=== PATIENT | female | born 1960 | race Caucasian/White ===

== ENCOUNTER 2016-08-10 06:45 | Day surgery (SDC) | payer BC ==
[2016-08-10] MEDS ORDERED: Lactated Ringers 1,000 ML IV SCH (07:00)
[2016-08-10] MEDS ORDERED: Sodium Chloride 0.9% 10 ML Syringe FLUSH PRN (07:00)
[2016-08-10] MEDS ORDERED: diphenhydrAMINE 50 MG/ML SDV IV ONE (08:15)
[2016-08-10] MEDS ORDERED: Ondansetron 4 MG/2 ML SDV IVPUSH ONE (08:15)
[2016-08-10] MEDS ORDERED: Dexamethasone 4 MG/ML 5 ML MDV IVPUSH ONE (08:15)
[2016-08-10] MEDS ORDERED: Propofol 200 MG/20 ML SDV IV ONE (08:15)
[2016-08-10] MEDS ORDERED: Succinylcholine 200 MG/10 ML MDV IV ONE (08:15)
[2016-08-10] MEDS ORDERED: Neostigmine Methylsulfate 1 MG/ML 5 ML Syringe IV ONE (08:15)
[2016-08-10] MEDS ORDERED: Lactated Ringers 1,000 ML IV ONE (08:15)
[2016-08-10] MEDS ORDERED: fentaNYL 100 MCG/2 ML SDV IV ONE (08:15)
[2016-08-10] MEDS ORDERED: Rocuronium 50 MG/5 ML Vial IV ONE (08:15)
[2016-08-10] MEDS ORDERED: Albuterol 8 GM Inhaler INH ONE (08:15)
[2016-08-10] MEDS ORDERED: Ketorolac 30 MG/ML SDV IVPUSH ONE (08:15)
[2016-08-10] MEDS ORDERED: Midazolam 1 MG/ML 2 ML SDV IV ONE (08:15)
--- NOTE | 2016-08-10 08:24 | PCM.HPR ---
H & P Addendum review - H & P Addendum Review Date of Original H & P: 07/31/16 Date Reviewed: 08/10/16 Time Reviewed: 08:10 Patient was examined: No Changes (ok to proceed with lap ken)
--- NOTE | 2016-08-10 09:10 | PCM.OPNOTE ---
- General Post-Op/Procedure Note Date of Surgery/Procedure: 08/10/16 Operative Procedure(s): Lap Radha Pre Op Diagnosis: Chronic Cholecystitis Post-Op Diagnosis: Same Anesthesia Technique: General ET tube Primary Surgeon: Paul Gastelum Anesthesia Provider: Carole Ma Pathology: Gallbladder EBL in mLs: 5 Complications: None Condition: Good
[2016-08-10] MEDS ORDERED: Acetaminophen/HYDROcodone 325-5 MG Tab PO PRN (09:16)
[2016-08-10] MEDS ORDERED: Morphine 2 MG/ML Syringe IVPUSH PRN (09:16)
--- NOTE | 2016-08-10 15:31 | OR ---
DATE OF OPERATION: 08/10/2016 SURGEON: Paul Gastelum MD PREOPERATIVE DIAGNOSIS: Chronic cholecystitis. POSTOPERATIVE DIAGNOSIS: Chronic cholecystitis. PROCEDURE: Laparoscopic cholecystectomy. ANESTHESIA: General. DESCRIPTION OF PROCEDURE: The patient was brought to the operating room, where general endotracheal anesthesia was administered. The abdomen was prepped with ChloraPrep and draped sterilely. An infraumbilical incision was made and extended into the peritoneal cavity without difficulty. The Trinity cannulator was introduced and a pneumoperitoneum obtained. The remaining three 5-mm ports were placed in the usual positions. General exploration revealed the surface of the liver, stomach, omentum, bowel, and peritoneal surfaces to be normal. The gallbladder was grasped and retracted cephalad. The cystic artery and cystic duct were clearly dissected free. Minimal oozing occurred during the dissection. The cystic artery was doubly clipped proximally and once distally and then transected. There was a small posterior branch of the cystic artery that was doubly clipped proximally and cauterized distally. The anatomy of the cystic duct was reconfirmed and could be seen entering the gallbladder and extending towards the common bile duct. This was doubly clipped proximally and once distally and then transected. The gallbladder was then removed from the bed of the liver without difficulty. No bile leakage occurred. The gallbladder was brought out through the umbilical incision. The right upper quadrant was irrigated and inspected, return was clear, and hemostasis was assured. Ports were removed under direct vision and remained hemostatic. The umbilical fascia was closed with [id number] #0 Vicryl. The skin was closed with #4-0 Vicryl subcuticular sutures. Benzoin and Steri-Strips were placed and Band-Aids applied. The patient tolerated the procedure well. Estimated blood loss is 5 cc. Patient returned to postanesthesia in stable condition ESTIMATED BLOOD LOSS: 5 mL. /[id number] HALEY/JAYA
[2016-08-10 17:21] VITALS: BP 118/77
== END 2016-08-10 16:55 | disposition home or self-care (01) ==
LOC: FB.SDS 06:45 → FB.MS 15:30 → FB.SDS 16:55
PROVIDERS: ATTEND Surgery
DX: K81.1 Chronic cholecystitis (principal); E21.3 Hyperparathyroidism, unspecified; F32.9 Major depressive disorder, single episode, unspecified; Z98.51 Tubal ligation status; Z90.710 Acquired absence of both cervix and uterus; Z98.890 Other specified postprocedural states; Z79.899 Other long term (current) drug therapy; I10 Essential (primary) hypertension; E03.9 Hypothyroidism, unspecified; E78.5 Hyperlipidemia, unspecified; J45.30 Mild persistent asthma, uncomplicated
CPT/HCPCS: 47562; A9270; J0330; J1100; J1200; J1885; J2250; J2270; J2405; J2704; J3010; J7120; 88304

== ENCOUNTER 2017-09-26 13:10 | Emergency (ER) | payer OTHER, BC ==
[2017-09-26] MEDS ORDERED: Ibuprofen 600 MG Tab PO ONE (13:18)
--- NOTE | 2017-09-26 14:12 | EDM.PDOC ---
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 There was no direct traum and the pt is able to extend and flex the left elbow with some discomfort in full. No other acute medical issues. 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 - Related Data Allergies Allergy/AdvReac Type Severity Reaction Status Date / Time No Known Allergies Allergy Verified 08/10/16 07:06 Home Meds: Home Meds Albuterol [Ventolin HFA] 2 inh IH Q6H PRN 02/01/14 [History] Mirtazapine [Remeron] 15 mg PO BEDTIME 02/01/14 [History] QUEtiapine Fumarate [Quetiapine Fumarate] 100 mg PO BEDTIME 02/01/14 [History] Venlafaxine HCl [Venlafaxine ER] 75 mg PO DAILY 02/01/14 [History] Beclomethasone Dipropionate [Qvar 80 Mcg] 1 puff IH BID 08/07/16 [History] Levothyroxine Sodium [Synthroid] 75 mcg PO ACBREAKFAST 08/07/16 [History] Omeprazole 20 mg PO DAILY 08/07/16 [History] Venlafaxine [Effexor XR] 150 mg PO DAILY 08/07/16 [History] Losartan [Cozaar] 100 mg PO DAILY 08/10/16 [History] Past Medical History HEENT History: Reports: Cataract Cardiovascular History: Reports: Heart Failure, High Cholesterol, Hypertension Respiratory History: Reports: Asthma Gastrointestinal History: Reports: GERD, Irritable Bowel Syndrome Genitourinary History: Reports: Renal Calculus Musculoskeletal History: Reports: Back Pain, Chronic Neurological History: Reports: Other (See Below) Other Neuro History: INSOMNIA Psychiatric History: Reports: Anxiety, Depression, PTSD Endocrine/Metabolic History: Reports: Hyperparathyroidism, Obesity/BMI 30+ - Infectious Disease History Infectious Disease History: Reports: Chicken Pox, Measles - Past Surgical History GI Surgical History: Reports: Cholecystectomy Female Surgical History: Reports: Breast Biopsy, Hysterectomy, Tubal Ligation Endocrine Surgical History: Reports: Parathyroidectomy Musculoskeletal Surgical History: Reports: Knee Replacement Social & Family History - Family History Family Medical History: Noncontributory - Caffeine Use Caffeine Use: Reports: Coffee Review of Systems - Review of Systems Review Of Systems: See Below Constitutional: Reports: No Symptoms Eyes: Reports: No Symptoms Ears: Reports: No Symptoms Nose: Reports: No Symptoms Mouth/Throat: Reports: No Symptoms Respiratory: Reports: No Symptoms Cardiovascular: Reports: No Symptoms GI/Abdominal: Reports: No Symptoms Genitourinary: Reports: No Symptoms Musculoskeletal: Reports: Arm Pain (left elbow) Skin: Reports: No Symptoms Neurological: Reports: No Symptoms Psychiatric: Reports: No Symptoms ED EXAM, GENERAL - Physical Exam Exam: See Below Exam Limited By: No Limitations General Appearance: Alert, WD/WN, Mild Distress Eye Exam: Bilateral Eye: Normal Inspection Ears: Normal External Exam, Normal Canal Ear Exam: Bilateral Ear: Auricle Normal Nose: Normal Inspection, Normal Mucosa, No Blood Throat/Mouth: Normal Inspection, Normal Lips, Normal Gums, Normal Oropharynx, Normal Voice, No Airway Compromise Head: Atraumatic, Normocephalic Neck: Normal Inspection, Supple, Non-Tender, Full Range of Motion Respiratory/Chest: No Respiratory Distress, Lungs Clear, Normal Breath Sounds, No Accessory Muscle Use, Chest Non-Tender Cardiovascular: Normal Peripheral Pulses, Regular Rate, Rhythm, No Edema, No Gallop, No JVD Peripheral Pulses: 1+: Brachial (R) GI/Abdominal: Normal Bowel Sounds, Soft, Non-Tender, No Organomegaly, No Distention, No Abnormal Bruit, No Mass, Pelvis Stable (Female) Exam: Deferred Rectal (Female) Exam: Deferred Back Exam: Normal Inspection, Full Range of Motion Extremities: Normal Inspection, Normal Range of Motion, Non-Tender, No Pedal Edema Neurological: Alert, Oriented, CN II-XII Intact, Normal Cognition, Normal Gait Psychiatric: Normal Affect, Normal Mood Skin Exam: Warm, Dry, Intact, Normal Color, No Rash Lymphatic: No Adenopathy Course - Vital Signs Text/Narrative:: 57 y.o.w.f came to the ed after she noticed left elbow pain as she put fresh meat in an upper shelf which. There was no direct traum and the pt is able to extend and flex the left elbow with some discomfort in full. No other acute medical issues. BP 157/94 pulse 104 RR 18 Temp 36.6 O2 sat 98% on RA PE: 57 y.o.w.mika came to the ed aft she felt some pain at her left elbow while filling up a shelf with fresh meat at work. Imaging: left elbow: NAD as per RAD Impression: Left elbow sprain. Workman's comp Tx: Motrin, ICE, arm sling Reexam: Improved Plan: D/C with instructions Last Recorded V/S: Last Vital Signs Temp 36.5 C 09/26/17 13:10 Pulse 100 09/26/17 14:29 Resp 18 09/26/17 14:29 BP 145/89 H 09/26/17 14:29 Pulse Ox 99 09/26/17 14:29 - Orders/Labs/Meds Orders: Active Orders 24 hr Category Date Time Status Cooling Warming Measures [RC] ASDIRECTED Care 09/26/17 13:18 Active Elbow Min 3V Lt [CR] Stat Exams 09/26/17 13:21 Taken Ice Bag [Ice Therapy] [OM.PC] Routine Oth 09/26/17 13:18 Ordered Meds: Medications Discontinued Medications Generic Name Dose Route Start Last Admin Trade Name Asafq PRN Reason Stop Dose Admin Ibuprofen 600 mg 09/26/17 13:18 09/26/17 13:37 Motrin PO 09/26/17 13:19 600 mg ONETIME ONE Administration Departure - Departure Time of Disposition: 14:10 Disposition: Home, Self-Care 01 Condition: Good Clinical Impression: Sprain of elbow, left Qualifiers: Encounter type: initial encounter Qualified Code(s): S53.402A - Unspecified sprain of left elbow, initial encounter - Discharge Information Instructions: How to Use a Sling, [id number], Elbow Contusion, [id number] Referrals: Princess Gomez EVENT DECORATOR [Primary Care Provider] - Forms: ED Department Discharge Additional Instructions: Please apply ice to the affected area, please take motrin for pain, light duty for 1 week. Please f/u, come back if your symptoms get worse acutely - My Orders Last 24 Hours: My Active Orders 09/26/17 13:18 Cooling Warming Measures [RC] ASDIRECTED Ice Bag [Ice Therapy] [OM.PC] Routine 09/26/17 13:21 Elbow Min 3V Lt [CR] Stat - Assessment/Plan Last 24 Hours: My Active Orders 09/26/17 13:18 Cooling Warming Measures [RC] ASDIRECTED Ice Bag [Ice Therapy] [OM.PC] Routine 09/26/17 13:21 Elbow Min 3V Lt [CR] Stat
[2017-09-26 14:38] VITALS: BP 145/89
== END 2017-09-26 14:35 | disposition home or self-care (01) ==
LOC: FB.ED 13:10
DX: S53.402A Unspecified sprain of left elbow, initial encounter (principal); I11.0 Hypertensive heart disease with heart failure; I50.9 Heart failure, unspecified; E78.00 Pure hypercholesterolemia, unspecified; J45.909 Unspecified asthma, uncomplicated; K21.9 Gastro-esophageal reflux disease without esophagitis; F41.9 Anxiety disorder, unspecified; F32.9 Major depressive disorder, single episode, unspecified; Z90.49 Acquired absence of other specified parts of digestive tract; Z79.899 Other long term (current) drug therapy; Y99.0 Civilian activity done for income or pay
CPT/HCPCS: 73080; 99283; A9270

== ENCOUNTER 2018-05-30 15:21 | Emergency (ER) | payer BC ==
[2018-05-30] MEDS ORDERED: Ketorolac 60 MG/2 ML SDV IM ONE (15:30)
[2018-05-30] MEDS ORDERED: Tamsulosin 0.4 MG Cap.ER PO ONE (15:33)
--- NOTE | 2018-05-30 16:32 | EDM.PDOC ---
ED HPI GENERAL MEDICAL PROBLEM - General Chief Complaint: Genitourinary Problem Stated Complaint: KIDNEY STONE Time Seen by Provider: 05/30/18 15:30 Source of Information: Reports: Patient, Family History Limitations: Reports: No Limitations - History of Present Illness INITIAL COMMENTS - FREE TEXT/NARRATIVE: 58 y.o.w.f with recently dx'd urolithiasis came to the ed because she still has pain at her right and left flank. Pt is on motrin and Flomax, she still has blood in her urine, no trauma. No N/V/D or any other acute medical issues. BP 130/83 RR 13 Pulse ox 100% on RA Pulse 81 Temp 36.9 Onset Date: 05/26/18 Onset Time: 10:00 Duration: Day(s):, Intermittent Location: Reports: Pelvis Quality: Reports: Burning, Dull, Same as Previous Episode Severity: Moderate Improves with: Reports: Medication, Rest Worsens with: Reports: Movement Context: Reports: Other (K Stones ) Associated Symptoms: Reports: No Other Symptoms right flank Pain Score (Numeric/FACES): 10 - Related Data Allergies Allergy/AdvReac Type Severity Reaction Status Date / Time No Known Allergies Allergy Verified 05/30/18 16:02 Home Meds: Home Meds Albuterol [Ventolin HFA] 2 inh IH Q6H PRN 02/01/14 [History] Mirtazapine [Remeron] 15 mg PO BEDTIME 02/01/14 [History] QUEtiapine Fumarate [Quetiapine Fumarate] 100 mg PO BEDTIME 02/01/14 [History] Beclomethasone Dipropionate [Qvar 80 Mcg] 1 puff IH BID PRN 08/07/16 [History] Venlafaxine [Effexor XR] 225 mg PO DAILY 08/07/16 [History] Diclofenac Sodium 4 gm BID 02/28/18 [History] lamoTRIgine [Lamotrigine] 100 mg DAILY 02/28/18 [History] Ciprofloxacin HCl [Cipro] 500 mg PO BID #20 tablet 05/30/18 [Rx] Hydrocodone/Acetaminophen [Hydrocodon-Acetaminophen 5-325] 1 each PO Q4HR PRN [History] Tamsulosin [Tamsulosin 24 Hr] 0.4 mg PO DAILY 05/30/18 [History] Past Medical History HEENT History: Reports: Cataract Cardiovascular History: Reports: Arrhythmia, Heart Failure, High Cholesterol, Hypertension, Other (See Below) Other Cardiovascular History: diastolic hypertension Respiratory History: Reports: Asthma Gastrointestinal History: Reports: GERD, Irritable Bowel Syndrome Genitourinary History: Reports: Renal Calculus, Renal Disease STATE G[employer] WARDEN History: Reports: Other STATE G[employer] WARDEN History: Musculoskeletal History: Reports: Arthritis, Back Pain, Chronic Neurological History: Reports: Other (See Below) Other Neuro History: INSOMNIA Psychiatric History: Reports: Anxiety, Depression, PTSD, Suicide Attempt Endocrine/Metabolic History: Reports: Hyperparathyroidism, Hypothyroidism, Obesity/BMI 30+ - Infectious Disease History Infectious Disease History: Reports: Chicken Pox - Past Surgical History Head Surgeries/Procedures: Reports: None HEENT Surgical History: Reports: Cataract Surgery Other HEENT Surgeries/Procedures: bilat catarct GI Surgical History: Reports: Cholecystectomy Female Surgical History: Reports: Breast Biopsy, Hysterectomy, Tubal Ligation Endocrine Surgical History: Reports: Parathyroidectomy Musculoskeletal Surgical History: Reports: Knee Replacement Other Musculoskeletal Surgeries/Procedures:: R knee replacement Social & Family History - Family History Family Medical History: Noncontributory - Tobacco Use Smoking Status *Q: Never Smoker - Caffeine Use Caffeine Use: Reports: Coffee, Energy Drinks, Soda, Tea - Recreational Drug Use Recreational Drug Use: No ED ROS GENERAL - Review of Systems Review Of Systems: See Below Constitutional: Reports: No Symptoms HEENT: Reports: No Symptoms Respiratory: Reports: No Symptoms Cardiovascular: Reports: No Symptoms Endocrine: Reports: No Symptoms GI/Abdominal: Reports: No Symptoms : Reports: Pain Musculoskeletal: Reports: No Symptoms Skin: Reports: No Symptoms Neurological: Reports: No Symptoms Psychiatric: Reports: No Symptoms Hematologic/Lymphatic: Reports: No Symptoms Immunologic: Reports: No Symptoms ED EXAM, RENAL/ - Physical Exam Exam: See Below Exam Limited By: No Limitations General Appearance: Alert, WD/WN, No Apparent Distress Eye Exam: Bilateral Eye: Normal Inspection Ears: Normal External Exam Nose: Normal Inspection Throat/Mouth: Normal Inspection, Normal Lips, Normal Voice, No Airway Compromise Head: Atraumatic, Normocephalic Neck: Normal Inspection, Supple, Non-Tender, Full Range of Motion Respiratory/Chest: No Respiratory Distress, Lungs Clear, Chest Non-Tender Cardiovascular: Normal Peripheral Pulses, Regular Rate, Rhythm, No Edema, No Murmur GI/Abdominal: Normal Bowel Sounds, Soft, Non-Tender, No Organomegaly, No Abnormal Bruit (Female) Exam: Deferred Rectal (Female) Exam: Deferred Back Exam: Normal Inspection, Full Range of Motion, CVA Tenderness (R), CVA Tenderness (L) Extremities: Normal Inspection, Normal Range of Motion, Non-Tender, No Pedal Edema Neurological: Alert, Oriented, CN II-XII Intact, Normal Cognition, Normal Gait Psychiatric: Normal Affect, Normal Mood Skin Exam: Warm, Dry, Intact, Normal Color, No Rash Lymphatic: No Adenopathy Course - Vital Signs Text/Narrative:: 58 y.o.w.f with recently dx'd urolithiasis came to the ed because she still has pain at her right and left flank. Pt is on motrin and Flomax, she still has blood in her urine, no trauma. No N/V/D or any other acute medical issues. BP 130/83 RR 13 Pulse ox 100% on RA Pulse 81 Temp 36.9 PE: WNWD W F with trevor flank pain. Labs: CBC nk BMB nl except BUN/CR ratio elevated UA: pos for UTI and hematuria Imaging: CT abd/pelvis: 4 mm Urolithiuasis left ureter, no hydro, 5 mm stone right ureter with mod hydro Impression: UTI with hematuria, 4 mm Urolithiuasis left ureter, no hydro, 5 mm stone right ureter with mod hydro Tx: Toradol, Cipro as a prescription Reexam: Improved 4.30 pm Consultation: Urology clinic in [place]: [phone] D/C with instructions Last Recorded V/S: Last Vital Signs Temp 36.6 C 05/30/18 16:45 Pulse 78 05/30/18 16:45 Resp 16 05/30/18 16:45 BP 121/76 05/30/18 16:45 Pulse Ox 96 05/30/18 16:45 - Orders/Labs/Meds Orders: Active Orders 24 hr Category Date Time Status Abdomen Pelvis wo Cont [CT] Stat Exams 05/30/18 15:31 Taken Labs: Laboratory Tests 05/30/18 05/30/18 05/30/18 Range/Units 15:40 15:40 15:40 WBC 9.2 (4.5-12.0) X10-3/uL RBC 4.15 (3.23-5.20) x10(6)uL Hgb 12.7 (11.5-15.5) g/dL Hct 37.1 (30.0-51.3) % MCV 89.3 (80-96) fL MCH 30.6 (27.7-33.6) pg MCHC 34.2 (32.2-35.4) g/dL RDW 12.8 (11.5-15.5) % Plt Count 345 (125-369) X10(3)uL MPV 7.6 (7.4-10.4) fL Neut % (Auto) 70.6 (46-82) % Lymph % (Auto) 21.6 (13-37) % Carver % (Auto) 7.5 (4-12) % Eos % (Auto) 0 L (1.0-5.0) % Baso % (Auto) 0 (0-2) % Neut # (Auto) 6.5 (1.6-8.3) # Lymph # (Auto) 2.0 (0.6-5.0) # Carver # (Auto) 0.7 (0.0-1.3) # Eos # (Auto) 0.0 (0.0-0.8) # Baso # (Auto) 0.0 (0.0-0.2) # Sodium 137 (135-145) mmol/L Potassium 3.7 (3.5-5.3) mmol/L Chloride 101 D (100-110) mmol/L Carbon Dioxide 28 (21-32) mmol/L BUN 18 (7-18) mg/dL Creatinine 0.8 (0.55-1.02) mg/dL Est Cr Clr Drug Dosing TNP Estimated GFR (MDRD) > 60 (>60) BUN/Creatinine Ratio 22.5 H (9-20) Glucose 85 (80-116) mg/dL Calcium 9.3 (8.6-10.2) mg/dL Urine Color Walker (YELLOW) Urine Appearance Cloudy (CLEAR) Urine pH 7.0 H (5.0-6.5) Ur Specific [place] 1.010 (1.010-1.025) Urine Protein Negative (NEGATIVE) mg/dL Urine Glucose (UA) Normal (NEGATIVE) mg/dL Urine Ketones Negative (NEGATIVE) mg/dL Urine Occult Blood Large H (NEGATIVE) Urine Nitrite Negative (NEGATIVE) Urine Bilirubin Negative (NEGATIVE) Urine Urobilinogen Normal (NEGATIVE) mg/dL Ur Leukocyte Esterase Large H (NEGATIVE) Urine RBC >100 H (0) Urine WBC 10-20 H (0) Ur Squamous Epith Cells Occasional (NS,R,O) Urine Bacteria Few H (NS) Meds: Medications Discontinued Medications Generic Name Dose Route Start Last Admin Trade Name Freq PRN Reason Stop Dose Admin Ketorolac Tromethamine 60 mg 05/30/18 15:30 05/30/18 16:00 Toradol IM 05/30/18 15:31 60 mg ONETIME ONE Administration Tamsulosin HCl 0.4 mg 05/30/18 15:33 05/30/18 16:07 Flomax PO 05/30/18 15:34 Not Given ONETIME ONE Departure - Departure Time of Disposition: 16:34 Disposition: Home, Self-Care 01 Condition: Good Clinical Impression: Urolithiasis Qualifiers: Urinary calculus location: ureter Qualified Code(s): N20.1 - Calculus of ureter - Discharge Information Prescriptions: Ciprofloxacin HCl [Cipro] 500 mg PO BID #20 tablet Instructions: Kidney Stones, [id number] Referrals: Princess Gomez MOBILE SECURITY SPECIALIST [Primary Care Provider] - Forms: ED Department Discharge Additional Instructions: Please cont your current meds, please f/u with urology at [facility], call for an appointment: [phone]. Please come back to the ed if your symptoms get worse acutely - My Orders Last 24 Hours: My Active Orders 05/30/18 15:31 Abdomen Pelvis wo Cont [CT] Stat - Assessment/Plan Last 24 Hours: My Active Orders 05/30/18 15:31 Abdomen Pelvis wo Cont [CT] Stat
[2018-05-30 17:57] VITALS: BP 121/76
== END 2018-05-30 17:15 | disposition home or self-care (01) ==
LOC: FB.ED 15:21
DX: N13.2 Hydronephrosis with renal and ureteral calculous obstruction (principal); I11.0 Hypertensive heart disease with heart failure; I50.9 Heart failure, unspecified; K21.9 Gastro-esophageal reflux disease without esophagitis; F41.9 Anxiety disorder, unspecified; F32.9 Major depressive disorder, single episode, unspecified; E03.9 Hypothyroidism, unspecified; E21.3 Hyperparathyroidism, unspecified; Z79.899 Other long term (current) drug therapy
CPT/HCPCS: 36415; 74176; 80048; 81001; 85025; 96372; 99284; J1885